=== PATIENT | male | born 1960 | race American Indian/Alaskan Native ===

== ENCOUNTER 2017-08-08 07:30 | Emergency (ER) | payer OTHER ==
--- NOTE | 2017-08-08 09:00 | CT ---
PROCEDURE: CT HEAD WITHOUT CONTRAST. HISTORY: Head injury COMPARISON: None available. TECHNIQUE: Axial computed tomography images were obtained through the head/brain without intravenous contrast. Radiation dose: Total exam DLP = 835.77 mGy-cm. This CT exam was performed using one or more of the following dose reduction techniques: Automated exposure control, adjustment of the mA and/or kV according to patient size, and/or use of iterative reconstruction technique. FINDINGS: HEMORRHAGE: No intracranial hemorrhage. BRAIN: No mass effect or edema. The leonard-white matter differentiation appears intact. Please note that MRI with diffusion imaging is more sensitive in the detection of acute ischemic event. VENTRICLES: No hydrocephalus. CALVARIUM: Unremarkable. PARANASAL SINUSES: Partial opacification of the left maxillary sinus. Remainder the visualized paranasal sinuses appear clear. MASTOID AIR CELLS: Partial opacification of the left mastoid air cells; correlate clinically for mastoiditis. OTHER FINDINGS: None. IMPRESSION: No acute intracranial pathology identified. Partial opacification of left mastoid air cells; correlate clinically for mastoiditis. Partial opacification/ mucosal thickening of the left maxillary sinus; correlate clinically for sinusitis.
[2017-08-08 09:05] LABS: BASO % 0.4 % (0.0-2.0); EOS # 0.1 K/uL (0.0-0.7); EOS % 0.7 % (0.0-4.0); HEMOGLOBIN 13.2 g/dL (12.0-18.0); LYMPH # 1.8 K/uL (1.0-4.3); LYMPH % 23.4 % (20.0-40.0); MEAN CELL VOLUME 91.9 fl (80.0-94.0); MEAN CORPUSCULAR HEMOGLOBIN 30.8 pg (27.0-31.0); MEAN CORPUSCULAR HGB CONC 33.4 g/dL (33.0-37.0); MEAN PLATELET VOLUME 8.1 fl (7.2-11.7); MONO # 0.5 K/uL (0.0-0.8); MONO % 6.4 % (0.0-10.0); NEUT # 5.4 K/uL (1.8-7.0); NEUT % 69.1 % (50.0-75.0); NRBC % 0.2 % (0.0-0.0); RBC 4.29 Mil/uL (4.40-5.90); RED CELL DISTRIBUTION WIDTH 12.9 % (11.5-14.5); WHITE BLOOD COUNT 7.8 K/uL (4.8-10.8)
[2017-08-08 09:11] LABS: PARTIAL THROMBOPLASTIN TIME 33.2 Seconds (25.6-37.1); PROTHROMBIN TIME 11.3 Seconds (9.8-13.1)
[2017-08-08 09:18] LABS: ALB/GLOB RATIO 1.4 (1.0-2.1); ALBUMIN 4.1 g/dL (3.5-5.0); ALT/SGPT 52 U/L (21-72); AST/SGOT 71 U/L (17-59); BLOOD UREA NITROGEN 12 mg/dl (9-20); CALCIUM 8.9 mg/dL (8.4-10.2); GFR AFRICAN-AMERICAN > 60; GFR NON-AFRICAN AMERICAN > 60
--- NOTE | 2017-08-08 09:25 | CT ---
CT maxillofacial bones without IV contrast Indication: Head injury Comparison: None available Technique: Axial computed tomography images were obtained of the maxillofacial bones without the use of intravenous contrast. Coronal and sagittal reformatted images were generated and reviewed. This CT exam was performed using 1 or more of the falling dose reduction techniques: Automated exposure control, adjustment of the MAA and/or kV according to patient size, and/or use of iterative reconstruction technique. Radiation dose: Total exam DLP = 793.07 mGy-cm. Findings: Poor dentition. The facial bones appear intact without acute displaced fracture identified but. The the orbits appear unremarkable. The temporomandibular joints are located. Increased attenuation of the left maxillary sinus contents may indicate proteinaceous material or fungal colonization. Partial opacification of the left mastoid air cells; correlate clinically for mastoiditis. The right mastoid air cells appear clear. Impression: No acute fracture identified. Increased attenuation of the left maxillary sinus contents may indicate proteinaceous material or fungal colonization. Partial opacification of the left mastoid air cells; correlate clinically for mastoiditis.
--- NOTE | 2017-08-08 10:03 | CT ---
CT cervical spine without IV contrast Indication: Head injury Comparison: None available. Technique: Axial computed tomography images were obtained of the cervical spine without the use of intravenous contrast. Coronal and sagittal reformatted images were created and reviewed. This CT exam was performed using 1 or more of the falling dose reduction techniques: Automated exposure control, adjustment of the MAA and/or kV according to patient size, and/or use of iterative reconstruction technique. Radiation dose: Total exam DLP = 706.77 mGy-cm. Findings: Examination is limited with motion artifact C6 through T1 vertebral bodies. Limited repeat views of C6 and C7 appear grossly intact. Remainder the visualized osseous structures appear intact without acute displaced fracture or subluxation. Multilevel degenerative changes including intervertebral disc space narrowing and osteophyte formation. Straightening of the normal cervical lordosis may be related to muscle spasm or positioning. The prevertebral soft tissues and spinolaminar lines appear intact. The dens tip is intact. There is proper alignment of the lateral masses of C1 with the C2 vertebral body. Partial opacification of the left mastoid air cells; correlate clinically for mastoiditis. The visualized right mastoid air cells appear clear. Included portions of the thyroid gland appear unremarkable. Included portions of lung apices demonstrate emphysematous changes. Impression: Limited study. Straightening of the normal cervical lordosis may be related to muscle spasm or positioning. Examination is limited with motion artifact C6 through T1 vertebral bodies. Limited repeat views of C6 and C7 appear grossly intact. Correlate with physical exam. If indicated repeat study may be considered. Remainder the visualized osseous structures appear intact without acute displaced fracture or subluxation. Multilevel degenerative changes including intervertebral disc space narrowing and osteophyte formation. Partial opacification of the left mastoid air cells; correlate clinically for mastoiditis. Emphysematous changes. Findings discussed with Dr. Beltran on 08/08/17 at 9:30 a.m.
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
[2017-08-08] MEDS ORDERED: Amoxicillin-Clav 875-125 mg Tab PO STA (13:58)
[2017-08-08 14:15] LABS: BARBITURATES, UR NEGATIVE (NEGATIVE); BENZODIAZEPINES, UR NEGATIVE (NEGATIVE); PHENCYCLIDINE, UR NEGATIVE (NEGATIVE)
[2017-08-08 14:19] LABS: OPIATES, UR POSITIVE (NEGATIVE)
[2017-08-08 14:34] VITALS: TEMP 98.3
[2017-08-08] MEDS ORDERED: Amoxicillin-Clav 875-125 mg Tab PO ONE (14:35)
[2017-08-08] MEDS ORDERED: Sodium Chloride 0.9% 1,000 ML IV STA (14:37)
[2017-08-08 15:43] VITALS: BP 107/69; PULSE 79
[2017-08-08 15:44] VITALS: O2SAT 98
[2017-08-08 16:05] VITALS: RESP 16
== END 2017-08-08 16:03 | disposition home or self-care (01) ==
LOC: H.ER 07:30
DX: F19.129 Other psychoactive substance abuse with intoxication, unspecified (principal); S00.83XA Contusion of other part of head, initial encounter; J32.9 Chronic sinusitis, unspecified; Z87.891 Personal history of nicotine dependence
CPT/HCPCS: 70450; 70486; 72125; 80053; 80320; 80324; 80345; 80346; 80349; 80353; 80358; 80361; 83992; 85025; 85610; 85730; 90471; 90715; 96360; 99285; J7040